=== PATIENT | male | born 1945 | race Caucasian/White ===

== ENCOUNTER 2019-05-22 22:03 | Observation (INO) | payer OTHER, MEDICARE, BC ==
[2019-05-22] MEDS ORDERED: SODIUM CHLORIDE 0.9% 1,000 ML IV STA (22:30)
[2019-05-22 22:49] LABS: Glucose,Whole Blood 96 mg/dL (75-99)
[2019-05-22 23:06] LABS: Basophils # (A) 0.1 k/uL (0-0.2); Basophils % (A) 1 %; Eosinophils # (A) 0.2 k/uL (0-0.7); Eosinophils % (A) 4 %; HCT 42.4 % (39.0-53.0); HGB 14.2 gm/dL (13.0-17.5); Lymphocytes # (A) 1.3 k/uL (1.0-4.8); Lymphocytes % (A) 21 %; MCH 33.5 pg (25.0-35.0); MCHC 33.5 g/dL (31.0-37.0); MCV 99.9 fL (80.0-100.0); Mean Platelet Volume 7.6; Monocytes # (A) 0.5 k/uL (0-1.0); Monocytes % (A) 8 %; Neutrophils % (A) 64 %; Platelet Count 275 k/uL (150-450); RBC 4.24 m/uL (4.30-5.90); RDW 13.4 % (11.5-15.5); WBC 6.3 k/uL (3.8-10.6)
[2019-05-22 23:17] LABS: Albumin 3.9 g/dL (3.5-5.0); Calcium 9.4 mg/dL (8.4-10.2); Potassium 4.1 mmol/L (3.5-5.1); Total Bilirubin 0.4 mg/dL (0.2-1.3); Total Protein 6.4 g/dL (6.3-8.2)
[2019-05-22 23:19] LABS: INR 0.9 (<1.2); Partial Thromboplastin Time 24.3 sec (22.0-30.0); Prothrombin Time 9.6 sec (9.0-12.0)
[2019-05-23 00:04] LABS: Appearance,Urine Cloudy (Clear); Bacteria,Urine Rare /hpf; Bilirubin,Urine Negative (Negative); Blood,Urine Moderate (Negative); Color,Urine Yellow; Glucose,Urine (UA) Negative (Negative); Hyaline Casts,Urine 75 /lpf (0-2); Ketones,Urine Trace (Negative); Leukocyte Esterase,Urine Small (Negative); Mucus,Urine Rare /hpf; Nitrite,Urine Negative (Negative); Protein,Urine 1+ (Negative); RBC,Urine 45 /hpf (0-5); Specific Gravity,Urine 1.014 (1.001-1.035); Squamous Epithelial Cell,Urine 2 /hpf (0-4); Urobilinogen,Urine <2.0 mg/dL (<2.0); WBC,Urine 13 /hpf (0-5)
[2019-05-23] MEDS ORDERED: ASPIRIN 81 MG PO STA (00:06)
[2019-05-23] MEDS ORDERED: SODIUM CHLORIDE 0.9% 1,000 ML IV ONE (00:07)
[2019-05-23] MEDS ORDERED: cefTRIAXone IN SWFI 1,000 MG/10 ML SYRINGE IVP STA (00:08)
--- NOTE | 2019-05-23 00:16 | ED ---
Neuro HPI - General Chief Complaint: Neuro Symptoms/Deficit Stated Complaint: rt facial numbness Time Seen by Provider: 05/22/19 22:30 Source: patient - History of Present Illness Is the patient presenting with stroke symptoms?: No Initial Comments: Chano is a 73-year-old gentleman with a history of hypertension who presents the emergency department today via private vehicle for evaluation of strokelike symptoms. Patient lives in [facility] and flew to [place] today for a [employer] constitution party, this evening he was with 2 of his good friends at the [place] he reports he drank one beer which is not atypical for him. Upon leaving the bar he reported to his friend that his face felt numb and when his friend looked at him he noticed that the left-sided Gerardo they seem to be drooping and he was drooling. Chano refused come to the emergency department immediately however his friends were able to convince him to come in to be evaluated. By the time he arrived patient reports his symptoms have resolved completely he feels absolutely fine. Patient had no other symptoms he had no difficulty with speech no weakness in his limbs no trouble walking no confusion. No headache or vision changes. Patient has no history of cardiovascular disease, TIA or stroke in the past. Review of Systems ROS Statement: Those systems with pertinent positive or pertinent negative responses have been documented in the HPI. ROS Other: All systems not noted in ROS Statement are negative. General Exam - General Exam Comments Initial Comments: GENERAL: Patient is well-developed and well-nourished. Patient is nontoxic and well-hydrated and is in no distress. HENT: Normocephalic, Atraumatic. Neck is soft and supple. No significant lymphadenopathy is noted. Oropharynx is clear. Moist mucous membranes. Neck has full range of motion without eliciting any pain. EYES: The sclera were anicteric and conjunctiva were pink and moist. Extraocular movements were intact and pupils were equal round and reactive to light. Eyelids were unremarkable. PULMONARY: Unlabored respirations. Good breath sounds bilaterally. No audible rales rh onchi or wheezing was noted. CARDIOVASCULAR: There is a regular rate and rhythm without any murmurs gallops or rubs. ABDOMEN: Soft and nontender with normal bowel sounds. SKIN: Skin is clear with no lesions or rashes and otherwise unremarkable. NEUROLOGIC: Patient is alert and oriented x3. Cranial nerves II through XII are grossly intact. Motor and sensory are also intact. Normal speech, volume and content. Symmetrical smile. MUSCULOSKELETAL: Normal extremities with adequate strength and full range of motion. No lower extremity swelling or edema. No calf tenderness. LYMPHATICS: No significant lymphadenopathy is noted PSYCHIATRIC: Normal psychiatric evaluation Stroke MDM - Lab Data Result diagrams: 05/22/19 22:45 05/22/19 22:45 Lab Results 05/22/19 05/22/19 05/22/19 Range/Units 22:39 22:45 22:45 WBC 6.3 (3.8-10.6) k/uL RBC 4.24 L (4.30-5.90) m/uL Hgb 14.2 (13.0-17.5) gm/dL Hct 42.4 (39.0-53.0) % MCV 99.9 (80.0-100.0) fL MCH 33.5 (25.0-35.0) pg MCHC 33.5 (31.0-37.0) g/dL RDW 13.4 (11.5-15.5) % Plt Count 275 (150-450) k/uL Neutrophils % 64 % Lymphocytes % 21 % Monocytes % 8 % Eosinophils % 4 % Basophils % 1 % Neutrophils # 4.0 (1.3-7.7) k/uL Lymphocytes # 1.3 (1.0-4.8) k/uL Monocytes # 0.5 (0-1.0) k/uL Eosinophils # 0.2 (0-0.7) k/uL Basophils # 0.1 (0-0.2) k/uL PT (9.0-12.0) sec INR (<1.2) APTT (22.0-30.0) sec Sodium 138 (137-145) mmol/L Potassium 4.1 (3.5-5.1) mmol/L Chloride 101 (98-107) mmol/L Carbon Dioxide 20 L (22-30) mmol/L Anion Gap 17 mmol/L BUN 37 H (9-20) mg/dL Creatinine 3.04 H (0.66-1.25) mg/dL Est GFR (CKD-EPI)AfAm 23 (>60 ml/min/1.73 sqM) Est GFR (CKD-EPI)NonAf 20 (>60 ml/min/1.73 sqM) Glucose 98 (74-99) mg/dL POC Glucose (mg/dL) 96 (75-99) mg/dL POC Glu Burrer Marker Axle ID Terrell Latham Calcium 9.4 (8.4-10.2) mg/dL Total Bilirubin 0.4 (0.2-1.3) mg/dL AST 23 (17-59) U/L ALT 20 L (21-72) U/L Alkaline Phosphatase 82 (38-126) U/L Total Protein 6.4 (6.3-8.2) g/dL Albumin 3.9 (3.5-5.0) g/dL Urine Color Urine Appearance (Clear) Urine pH (5.0-8.0) Ur Specific [place] (1.001-1.035) Urine Protein (Negative) Urine Glucose (UA) (Negative) Urine Ketones (Negative) Urine Blood (Negative) Urine Nitrite (Negative) Urine Bilirubin (Negative) Urine Urobilinogen (<2.0) mg/dL Ur Leukocyte Esterase (Negative) Urine RBC (0-5) /hpf Urine WBC (0-5) /hpf Urine WBC Clumps (None) /hpf Ur Squamous Epith Cells (0-4) /hpf Urine Bacteria (None) /hpf Hyaline Casts (0-2) /lpf Urine Mucus (None) /hpf 05/22/19 05/22/19 Range/Units 22:45 23:35 WBC (3.8-10.6) k/uL RBC (4.30-5.90) m/uL Hgb (13.0-17.5) gm/dL Hct (39.0-53.0) % MCV (80.0-100.0) fL MCH (25.0-35.0) pg MCHC (31.0-37.0) g/dL RDW (11.5-15.5) % Plt Count (150-450) k/uL Neutrophils % % Lymphocytes % % Monocytes % % Eosinophils % % Basophils % % Neutrophils # (1.3-7.7) k/uL Lymphocytes # (1.0-4.8) k/uL Monocytes # (0-1.0) k/uL Eosinophils # (0-0.7) k/uL Basophils # (0-0.2) k/uL PT 9.6 (9.0-12.0) sec INR 0.9 (<1.2) APTT 24.3 (22.0-30.0) sec Sodium (137-145) mmol/L Potassium (3.5-5.1) mmol/L Chloride (98-107) mmol/L Carbon Dioxide (22-30) mmol/L Anion Gap mmol/L BUN (9-20) mg/dL Creatinine (0.66-1.25) mg/dL Est GFR (CKD-EPI)AfAm (>60 ml/min/1.73 sqM) Est GFR (CKD-EPI)NonAf (>60 ml/min/1.73 sqM) Glucose (74-99) mg/dL POC Glucose (mg/dL) (75-99) mg/dL POC Glu Burrer Marker Axle ID Calcium (8.4-10.2) mg/dL Total Bilirubin (0.2-1.3) mg/dL AST (17-59) U/L ALT (21-72) U/L Alkaline Phosphatase (38-126) U/L Total Protein (6.3-8.2) g/dL Albumin (3.5-5.0) g/dL Urine Color Yellow Urine Appearance Cloudy (Clear) Urine pH 5.0 (5.0-8.0) Ur Specific [place] 1.014 (1.001-1.035) Urine Protein 1+ H (Negative) Urine Glucose (UA) Negative (Negative) Urine Ketones Trace H (Negative) Urine Blood Moderate H (Negative) Urine Nitrite Negative (Negative) Urine Bilirubin Negative (Negative) Urine Urobilinogen <2.0 (<2.0) mg/dL Ur Leukocyte Esterase Small H (Negative) Urine RBC 45 H (0-5) /hpf Urine WBC 13 H (0-5) /hpf Urine WBC Clumps Rare H (None) /hpf Ur Squamous Epith Cells 2 (0-4) /hpf Urine Bacteria Rare H (None) /hpf Hyaline Casts 75 H (0-2) /lpf Urine Mucus Rare H (None) /hpf - NIH Stroke Scale 1a. Level of Consciousness: (0) alert 1b. LOC Questions: (0) answers correctly 1c. LOC Commands: (0) performs tasks correctly 2. Best Gaze: (0) normal 3. Visual: (0) no visual loss 4. Facial Palsy: (0) normal symmetrical movement 5a. Motor Arm Left: (0) no drift 5b. Motor Arm Right: (0) no drift 6a. Motor Leg Left: (0) no drift 6b. Motor Leg Right: (0) no drift 7. Limb Ataxia: (0) absent 8. Sensory: (0) normal 9. Best Language: (0) no aphasia 10. Dysarthria: (0) normal 11. Extinction/Inattention: (0) no abnormality - Thrombolytic Inclusion/Exclusion Thrombolytic Contraindications: Rapidly Improving s/s - Medical Decision Making The patient was seen and evaluated, history is obtained from patient and her friends at bedside This a previously healthy 73-year-old gentleman with history of hypertension who presents with TIA like symptoms. Patient had an episode of left face numbness, drooping and drooling. The symptoms resolved after approximately 15-30 minutes. Symptoms are gone upon arrival to the emergency department. Patient had had one beer prior to onset of symptoms but this is not atypical for him. Stroke workup was initiated Labs reveal creatinine of >3 Urinalysis concerning for urinary tract infection, culture will be obtained Patient remains asymptomatic throughout his stay in the emergency department however given that he had an apparent TIA would recommend he remain in the hospital for further evaluation. Patient is agreeable to this. - EKG Data -: EKG Interpreted by Mt EKG shows normal: sinus rhythm Rate: normal EKG was obtained at 2244, rate is 84 rhythm is sinus there is a normal axis there are normal intervals, NJ 136, QRS 80, QTC is 432 there are no acute ST elevations or depressions there is no evidence of acute ischemia, infarction or arrhythmia. 05/23/19 00:17 Past Medical History Past Medical History: Hypertension Additional Past Surgical History / Comment(s): denies Smoking Status: Never smoker Past Alcohol Use History: Occasional Past Drug Use History: None Reported Course Vital Signs 05/22/19 22:09 Temperature 98.2 F Pulse Rate 87 Respiratory 17 Rate Blood Pressure 115/67 O2 Sat by Pulse 95 Oximetry Disposition Clinical Impression: Transient cerebral ischemia, UTI (urinary tract infection), Dehydration Disposition: HOME SELF-CARE Condition: Stable Is patient prescribed a controlled substance at d/c from ED?: No Referrals: None,Stated [Primary Care Provider] - 1-2 days
--- NOTE | 2019-05-23 00:17 | CT ---
EXAM: CT Head Without Intravenous Contrast CLINICAL HISTORY: ITS.REASON CT Reason: Neuro Deficits - left facial numbness - resolved TECHNIQUE: Axial computed tomography images of the head/brain without intravenous contrast. CTDI is 49.10 mGy and DLP is 1131.40 mGy-cm. This CT exam was performed using one or more of the following dose reduction techniques: automated exposure control, adjustment of the mA and/or kV according to patient size, and/or use of iterative reconstruction technique. COMPARISON: No relevant prior studies available. 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 Chronic ischemic small vessel white matter disease. Diffuse parenchymal atrophy. No midline shift or hydrocephalus. No hemorrhage. Ventricles: See above. Bones/joints: Unremarkable. No acute fracture. Soft tissues: Unremarkable. Vasculature: Dense carotid siphon athero-sclerotic calcifications. Sinuses: Mild scattered paranasal sinus mucosal thickening. Mastoid air cells: Unremarkable as visualized. No mastoid effusion. IMPRESSION: No acute intracranial pathology.
--- NOTE | 2019-05-23 00:37 | XR ---
EXAM: XR Chest, 2 Views CLINICAL HISTORY: ITS.REASON XR Reason: altered mental status TECHNIQUE: Frontal and lateral views of the chest. COMPARISON: No relevant prior studies available. FINDINGS: Lungs: Calcified granulomas at the left upper lobe. No hilar or mediastinal enlargement. No cardiac silhouette enlargement. Pleural space: No pleural effusion. No pneumothorax. Heart: See above. Mediastinum: See above. Bones/joints: Degenerative spine changes Upper abdomen: Elevation of the right hemidiaphragm. IMPRESSION: No acute cardiopulmonary disease.
[2019-05-23 02:21] VITALS: BMI 27.7
[2019-05-23] MEDS: SODIUM CHLORIDE 0.9% 1,000 ML IV SCH ×2 (04:58→12:57)
[2019-05-23 05:33] VITALS: RESP 16
--- NOTE | 2019-05-23 08:30 | US ---
EXAMINATION TYPE: US carotid duplex BILAT DATE OF EXAM: 05/23/2019 COMPARISON: NONE CLINICAL HISTORY: TIA - left facial weakness. EXAM MEASUREMENTS: RIGHT: Peak Systolic Velocity (PSV) cm/sec ----- Right CCA: 47.7 ----- Right ICA: 66.0 ----- Right ECA: 114.4 ICA/CCA ratio: 1.4 RIGHT: End Diastole cm/sec ----- Right CCA: 6.9 ----- Right ICA: 22.8 ----- Right ECA: 5.5 LEFT: Peak Systolic Velocity (PSV) cm/sec ----- Left CCA: 96.1 ----- Left ICA: 71.5 ----- Left ECA: 74.4 ICA/CCA ratio: 0.7 LEFT: End Diastole cm/sec ----- Left CCA: 11.4 ----- Left ICA: 11.2 ----- Left ECA: 5.5 VERTEBRALS (direction of flow): Right Vertebral: Antegrade Left Vertebral: Antegrade Rhythm: Normal Patient has a low jawline, and tortuous vessels, technically difficult study. Moderate plaque, right ICA very difficult to assess due to tortuosity. Left CCA shows no elevated velocity but moderate to severe plaque. CTA may better assess tortuous vessels. IMPRESSION: Although no hemodynamically significant stenosis is seen on this examination there is tortuosity of t he vasculature limiting evaluation. Moderate to severe grayscale plaquing is seen on the left and mod erate on the right. Therefore CTA neck could better assess for stenosis given the previously mentione d tortuosity and grayscale plaquing. Criteria for Assigning % of Stenosis / Diameter reduction (Estimation based on the indirect measurements of the internal carotid artery velocities (ICA PSV). 1. Normal (no stenosis)=ICA PSV < 125 cm/s: ratio < 2.0: ICA EDV<40 cm/s. 2. Less than 50% stenosis=ICA PSV < 125 cm/s: ratio < 2.0: ICA EDV<40 cm/s. 3. 50 to 69% stenosis=ICA PSV of 125 to 230 cm/s: ration 2.0 ? 4.0: ICA EDV 40-100 cm/s. 4. Greater than 70% stenosis to near occlusion= ICA PSV > 230 cm/s: ratio > 4.0: ICA EDV > 100 cm/s. 5. Near occlusion= ICA PSV velocities may be low or undetectable: variable ratio and ICA EDV. 6. Total occlusion=unable to detect flow.
--- NOTE | 2019-05-23 09:51 | ECHOF ---
Referral Reason:TIA MEASUREMENTS -------- HEIGHT: 175.3 cm WEIGHT: 84.8 kg BP: 144/68 RVIDd: 3.9 cm (< 3.3) IVSd: 1.5 cm (0.6 - 1.1) LVIDd: 4.3 cm (3.9 - 5.3) LVPWd: 1.4 cm (0.6 - 1.1) IVSs: 2.0 cm LVIDs: 2.3 cm LVPWs: 2.1 cm LAESV Index (A-L): 25.45 ml/m Ao Diam: 3.6 cm (2.0 - 3.7) AV Cusp: 2.0 cm (1.5 - 2.6) LA Diam: 4.4 cm (2.7 - 3.8) MV EXCURSION: 13.644 mm (> 18.000) MV EF SLOPE: 76 mm/s (70 - 150) EPSS: 0.9 cm MV E Ghanshyam: 0.69 m/s MV DecT: 217 ms MV A Ghanshyam: 1.07 m/s MV E/A Ratio: 0.64 RAP: 5.00 mmHg RVSP: 18.36 mmHg FINDINGS -------- Sinus rhythm. This was a technically difficult study with suboptimal parasternal views. The left ventricular size is normal. There is moderate concentric left ventricular hypertrophy. O verall left ventricular systolic function is normal with, an EF between 60 - 65 %. The right ventricle is mild to moderately enlarged. Normal LA size by volume 22+/-6 ml/m2. The right atrial size is normal. 5.0mg of Lumason was utilized for enhancement of images Interatrial and interventricular septum intact. The aortic valve was not well visualized. There is no evidence of aortic regurgitation. There is no evidence of aortic stenosis. The mitral valve leaflets are mildly thickened. Mild mitral annular calcification present. No osvaldo ral regurgitation. Trace tricuspid regurgitation present. There is no evidence of pulmonary hypertension. The right ventricular systolic pressure, as measured by Doppler, is 18.36mmHg. There is no pulmonic regurgitation present. The aortic root size is normal. IVC Not well visulized. There is no pericardial effusion. CONCLUSIONS -------- 1. Sinus rhythm. 2. This was a technically difficult study with suboptimal parasternal views. 3. The left ventricular size is normal. 4. There is moderate concentric left ventricular hypertrophy. 5. Overall left ventricular systolic function is normal with, an EF between 60 - 65 %. 6. The right ventricle is mild to moderately enlarged. 7. Normal LA size by volume 22+/-6 ml/m2. 8. The right atrial size is normal. 9. 5.0mg of Lumason was utilized for enhancement of images 10. Interatrial and interventricular septum intact. 11. The aortic valve was not well visualized. 12. There is no evidence of aortic regurgitation. 13. There is no evidence of aortic stenosis. 14. The mitral valve leaflets are mildly thickened. 15. Mild mitral annular calcification present. 16. No mitral regurgitation. 17. Trace tricuspid regurgitation present. 18. There is no evidence of pulmonary hypertension. 19. The right ventricular systolic pressure, as measured by Doppler, is 18.36mmHg. 20. There is no pulmonic regurgitation present. 21. The aortic root size is normal. 22. IVC Not well visulized. 23. There is no pericardial effusion. LABORER/GRADE CHECK: Sahara Soares RDCS
[2019-05-23 11:08] VITALS: TEMP 98.1
[2019-05-23 12:15] VITALS: PULSE 86
--- NOTE | 2019-05-23 13:49 | P.CNNES ---
History of Present Illness Consult date: 05/23/19 Requesting physician: Chiqui Lorenz Reason for Consult: TIA Chief complaint: Transient left FD/slurred speech History of Present Illness: This is a 73 RH male whose vascular risk factors include advancing age and HTN. He was admitted yesterday after his friend noticed his left face was drooping and he was having slurred speech. The whole episode lasted around 5 minutes. Patient states that he was not even aware that his speech was slurred, but to his friend it was. Denies other neuro c/o such as other focal numbness/weakness, changes in vision, diplopia, amaurosis, vertigo, dysphagia, aphasia, tremors, bowel/bladder incontinence or ataxia. No recent head/neck trauma. Visiting from [place]. Was attending a long-term green party when his neuro sx occurred. No recurrence of his facial symptoms or other new neuro sx. Anxious to be discharged. Review of Systems I have performed a 14-point organ ROS with patient that are negative except as per HPI. Past Medical History Past Medical History: Hypertension History of Any Multi-Drug Resistant Organisms: None Reported Additional Past Surgical History / Comment(s): denies Past Anesthesia/Blood Transfusion Reactions: Unable to Obtain Smoking Status: Former smoker Past Alcohol Use History: Occasional Additional Past Alcohol Use History / Comment(s): quit 5 years ago Past Drug Use History: None Reported Medications and Allergies Home Medications Medication Instructions Recorded Confirmed Type Atorvastatin [Lipitor] 40 mg PO HS 05/23/19 05/23/19 History Carvedilol [Coreg] 3.125 mg PO BID 05/23/19 05/23/19 History Cholecalciferol [Vitamin D3 (25 2,000 unit PO DAILY 05/23/19 05/23/19 History Mcg = 1000 Iu)] Ergocalciferol (Vitamin D2) 50,000 unit PO DAILY 05/23/19 05/23/19 History [Vitamin D2] Losartan [Cozaar] 50 mg PO DAILY 05/23/19 05/23/19 History Allergies Allergy/AdvReac Type Severity Reaction Status Date / Time No Known Allergies Allergy Verified 05/23/19 00:50 Physical Examination - Vital Signs Vital Signs: Vital Signs Temp Pulse Pulse Resp BP BP Pulse Ox 05/23/19 11:53 86 16 153/85 96 05/23/19 07:53 98.1 F 80 16 134/71 96 05/23/19 04:00 98.0 F 91 16 144/68 95 05/23/19 02:15 98.5 F 97 18 134/67 95 05/23/19 02:07 91 16 119/65 98 05/23/19 01:40 98.5 F 97 18 134/67 95 05/22/19 22:09 98.2 F 87 17 115/67 95 Intake and Output 05/22/19 05/23/19 05/23/19 22:59 06:59 14:59 Intake Total 240 Balance 240 Intake: Oral 240 Other: Voiding Method Toilet Toilet # Voids 1 Weight 83.37 kg 85.2 kg Gen NAD Pleasant and cooperative HEENT NCAT Sclera without icterus O/P clear Neck Supple No carotid bruit Cor RRR no m/r/g Lungs CTAB Abd Soft NTND +BS Ext Warm to touch No edema Neuro MS A+Ox4 Normal fluency Able to follow all commands CN PERRL VFF no APD EOMI no nystagmus or UZAIR No facial asymmetry Masseter's symmetric Hearing intact to normal voice bilaterally Speech not dysarthric Equal elevation of palate Tongue midline Sym shrug and SCM bilaterally Motor Normal bulk/tone No pronator or leg drift No tremors Strength 5/5 sym throughout Sens Intact to LT x4 No neglect or extinction Coord No dysmetria on FTN bilaterally DTRs 2+/4 sym throughout Toes downgoing bilaterally No clonus at achilles Gait Deferred NIHSS 0 Results - Laboratory Findings CBC and BMP: 05/22/19 22:45 05/22/19 22:45 Abnormal Lab Findings: Abnormal Labs 05/22/19 05/22/19 05/22/19 22:45 22:45 23:35 RBC 4.24 L Carbon Dioxide 20 L BUN 37 H Creatinine 3.04 H ALT 20 L Urine Protein 1+ H Urine Ketones Trace H Urine Blood Moderate H Ur Leukocyte Esterase Small H Urine RBC 45 H Urine WBC 13 H Urine WBC Clumps Rare H Urine Bacteria Rare H Hyaline Casts 75 H Urine Mucus Rare H - Diagnostic Findings Additional findings: CT Head wo cont 05/22/19. Nil acute. Carotid duplex 05/23/19. Difficult exam due to tortuosity of carotid artieres. CTA recommended. TTE 05/23/19. Normal LV size. Moderate concentric LVH. EF 60-65%. Normal LA size. No intracardiac thrombi. I have reviewed all neuroimages myself. Assessment and Plan Assessment: Transient left FD and dysarthria, possible TIA. HTN Plan: -ASA 325mg po qd -Statin therapy -OK to treat BP to normotensive range as his NIHSS is 0 -CTA Head/Neck -TTE reviewed -PT/OT/SP per protocol -DVT prophylaxis: SCDs -May potentially be discharged after CTA -d/w patient in detail. All questions answered. Thank you for this consultation. Please call with ?.
--- NOTE | 2019-05-23 14:49 | P.PN ---
Progress Note - Text Progress Note Date: 05/23/19 CTA cannot be done due to poor renal function. Alternative would be MRA Neck wo bertha, but patient does not wish to stay in-house. Will discharge him on aspirin 325mg po qd and have him follow up with his PCP as soon as he returns home, and if he were to have recrudescence of his neuro symptoms and/or other new neuro concerns, then he should seek immediate medical attention. d/w direct support staff.
[2019-05-23 14:56] LABS: Albumin 3.4 g/dL (3.5-5.0); Total Bilirubin 0.4 mg/dL (0.2-1.3); Total Protein 5.9 g/dL (6.3-8.2)
[2019-05-23 16:03] VITALS: BP 161/90
[2019-05-23] MEDS ORDERED: ATORVASTATIN 80 MG TAB PO SCH (21:00)
[2019-05-24] MEDS ORDERED: ASPIRIN 325 MG TAB PO SCH (00:19)
--- NOTE | 2019-05-27 02:34 | P.HPIM ---
History of Present Illness H&P Date: 05/23/19 Chief Complaint: Left facial droop Patient is a 73-year-old male with a known history of hypertension who was was only from [place] currently visiting, was brought to the hospital due to left facial drooping and slurred speech. Patient was noticed by his friend that his left face is drooping. The episode was last about 5 minutes. Otherwise denied any weakness. No focal weakness. No numbness or tingling. No diplopia or change in vision. No bowel or bladder incontinence. No loss of consciousness. No witnesses seizures. Patient was attending a [employer] with his neuro symptoms occurred. Currently patient does not have any symptoms. No compressive chest pain or shortness of breath. No palpitations. No nausea vomiting. No headache or dizziness or lightheadedness. CT head negative Carotid duplex showed tortuosity of the vasculature. Chest x-ray showed no acute process EKG showed normal sinus rhythm. Next and 2-D echo cardiac exam showed normal ejection fraction. No shunt. No valvular abnormalities noted. Review of Systems Constitutional: Patient denies any fever or chills . No generalized weakness or weight loss. Abdomen: Patient denied nausea vomiting and diarrhea and abdominal pain. Cardiovascular: Patient denies any chest pain or short of breath no palpitations. Respiratory: patient denied any cough is from production. No shortness of breath Neurologic: Patient denied any numbness or tingling headache. Musculoskeletal: Patient denies any complaints of joint swelling or deformity. Skin: Negative Psychiatric: Negative Endocrine: No heat or cold intolerance. No recent weight gain. Genitourinary: No dysuria or hematuria. All other 14 point ROS negative except the above Past Medical History Past Medical History: Hypertension History of Any Multi-Drug Resistant Organisms: None Reported Additional Past Surgical History / Comment(s): denies Past Anesthesia/Blood Transfusion Reactions: Unable to Obtain Smoking Status: Former smoker Past Alcohol Use History: Occasional Additional Past Alcohol Use History / Comment(s): quit 5 years ago Past Drug Use History: None Reported Medications and Allergies Home Medications Medication Instructions Recorded Confirmed Type Aspirin 325 mg PO DAILY #30 tab 05/23/19 Rx Atorvastatin [Lipitor] 40 mg PO HS 05/23/19 05/23/19 History Carvedilol [Coreg] 3.125 mg PO BID 05/23/19 05/23/19 History Cholecalciferol [Vitamin D3 (25 2,000 unit PO DAILY 05/23/19 05/23/19 History Mcg = 1000 Iu)] Ergocalciferol (Vitamin D2) 50,000 unit PO DAILY 05/23/19 05/23/19 History [Vitamin D2] Allergies Allergy/AdvReac Type Severity Reaction Status Date / Time No Known Allergies Allergy Verified 05/23/19 00:50 Physical Exam Vitals: Vital Signs Temp Pulse Pulse Resp BP BP Pulse Ox 05/23/19 11:53 86 16 153/85 96 05/23/19 07:53 98.1 F 80 16 134/71 96 05/23/19 04:00 98.0 F 91 16 144/68 95 05/23/19 02:15 98.5 F 97 18 134/67 95 05/23/19 02:07 91 16 119/65 98 05/23/19 01:40 98.5 F 97 18 134/67 95 05/22/19 22:09 98.2 F 87 17 115/67 95 Intake and Output 05/22/19 05/23/19 05/23/19 22:59 06:59 14:59 Intake Total 240 Balance 240 Intake: Oral 240 Other: Voiding Method Toilet Toilet # Voids 1 Weight 83.37 kg 85.2 kg PHYSICAL EXAMINATION: Patient is lying in the bed comfortably, no acute distress, awake alert and oriented.. HEENT: Normocephalic. Neck is supple. Pupils reactive. Nostrils clear. Oral cavity is moist. Ears reveal no drainage. Neck reveals no JVD, carotid bruits, or thyromegaly. CHEST EXAMINATION: Trachea is central. Symmetrical expansion. Lung moore clear to auscultation and percussion. CARDIAC: Normal S1, S2 with no gallops. No murmurs ABDOMEN: Soft. Bowel sounds normal. No organomegaly. No abdominal bruits. Extremities: reveal no edema. No clubbing or cyanosis Neurologically awake, alert, oriented x3 with well-coordinated movements. No focal deficits noted Skin: No rash or skin lesions. Psychiatric: Coperative. Nonsuicidal Musculoskeletal: No joint swelling or deformity. Normal range of motion. Results CBC & Chem 7: 05/22/19 22:45 05/23/19 14:01 Labs: Abnormal Lab Results - Last 24 Hours (Table) 0605/22/19 05/22/19 Range/Units 22:45 22:45 23:35 RBC 4.24 L (4.30-5.90) m/uL Carbon Dioxide 20 L (22-30) mmol/L BUN 37 H (9-20) mg/dL Creatinine 3.04 H (0.66-1.25) mg/dL ALT 20 L (21-72) U/L Urine Protein 1+ H (Negative) Urine Ketones Trace H (Negative) Urine Blood Moderate H (Negative) Ur Leukocyte Esterase Small H (Negative) Urine RBC 45 H (0-5) /hpf Urine WBC 13 H (0-5) /hpf Urine WBC Clumps Rare H (None) /hpf Urine Bacteria Rare H (None) /hpf Hyaline Casts 75 H (0-2) /lpf Urine Mucus Rare H (None) /hpf Thrombosis Risk Factor Assmnt - DVT/VTE Prophylaxis DVT/VTE Prophylaxis: Pharmacologic Prophylaxis ordered - Choose All That Apply Any of the Below Risk Factors Present?: Yes Each Factor Represents 1 point: Obesity (BMI >25) Other Risk Factors: Yes Each Risk Factor Represents 2 Points: Age 61-74 years Other congenital or acquired thrombophilia - If yes, enter type in comment: No Thrombosis Risk Factor Assessment Total Risk Factor Score: 3 Thrombosis Risk Factor Assessment Level: Moderate Risk Assessment and Plan Assessment: Transient facial droop left-sided with slurred speech resolved now. Possible TIA. Acute kidney injury creatinine 3.04. Baseline not known. Likely prerenal. Hypertension DVT prophylaxis Plan: Patient will be continued on IV hydration. Stroke workup was ordered. Continue with DVT and GI prophylaxis. PT OT and speech therapy was consulted.. Neurology is on board. Further recommendations based on the clinical course. Time with Patient: Greater than 30
--- NOTE | 2019-05-27 02:37 | P.DS ---
Providers Date of admission: 05/23/19 00:18 Expected date of discharge: 05/23/19 Attending physician: Dianna Steele Consults: 05/23/19 00:18 Consult Physician Urgent Consulting Provider: George Michele Consult Reason/Comments: TIA Do you want consulting provider notified?: Yes, Notify in am Primary care physician: Stated None Hospital Course: Discharge diagnosis Transient facial droop left-sided with slurred speech resolved now. Possible TIA. Acute kidney injury creatinine 3.04. Baseline not known. Likely prerenal. Creatinine level improved to 1.66 Hypertension DVT prophylaxis Hospital course Patient is a 73-year-old male with a known history of hypertension who was was only from [place] currently visiting, was brought to the hospital due to left facial drooping and slurred speech. Patient was noticed by his friend that his left face is drooping. The episode was last about 5 minutes. Otherwise denied any weakness. No focal weakness. No numbness or tingling. No diplopia or change in vision. No bowel or bladder incontinence. No loss of consciousness. No witnesses seizures. Patient was attending a [employer] [facility] [employer] [facility] with his neuro symptoms occurred. Currently patient does not have any symptoms. No compressive chest pain or shortness of breath. No palpitations. No nausea vomiting. No headache or dizziness or lightheadedness. CT head negative Carotid duplex showed tortuosity of the vasculature. Chest x-ray showed no acute process EKG showed normal sinus rhythm. Next and 2-D echo cardiac exam showed normal ejection fraction. No shunt. No valvular abnormalities noted. Patient was continued on IV hydration. Stroke workup was ordered. Negative as above. Due to tortuosity of the carotid vasculature CT angiogram versus MRA was recommended but could not be done at this time due to acute kidney injury. Patient was recommended to continue aspirin 35 mg daily. Follow up with his PCP and sick medical intervention if the symptoms recur. Patient able to tolerate oral diet and no complaints of dysarthria and slurred speech. Patient wants to be discharged home. Discussed with neurology. PHYSICAL EXAMINATION: Patient is lying in the bed comfortably, no acute distress, awake alert and oriented.. HEENT: Normocephalic. Neck is supple. Pupils reactive. Nostrils clear. Oral cavity is moist. Ears reveal no drainage. Neck reveals no JVD, carotid bruits, or thyromegaly. CHEST EXAMINATION: Trachea is central. Symmetrical expansion. Lung moore clear to auscultation and percussion. CARDIAC: Normal S1, S2 with no gallops. No murmurs ABDOMEN: Soft. Bowel sounds normal. No organomegaly. No abdominal bruits. Extremities: reveal no edema. No clubbing or cyanosis Neurologically awake, alert, oriented x3 with well-coordinated movements. No focal deficits noted Skin: No rash or skin lesions. Psychiatric: Coperative. Nonsuicidal Musculoskeletal: No joint swelling or deformity. Normal range of motion. Discharge vitals reviewed. Patient Condition at Discharge: Stable Plan - Discharge Summary Discharge Rx Participant: No New Discharge Prescriptions: New Aspirin 325 mg PO DAILY #30 tab Continue Carvedilol [Coreg] 3.125 mg PO BID Cholecalciferol [Vitamin D3 (25 Mcg = 1000 Iu)] 2,000 unit PO DAILY Atorvastatin [Lipitor] 40 mg PO HS Ergocalciferol (Vitamin D2) [Vitamin D2] 50,000 unit PO DAILY Discontinued Losartan [Cozaar] 50 mg PO DAILY Discharge Medication List Aspirin 325 mg PO DAILY #30 tab 05/23/19 [Rx] Atorvastatin [Lipitor] 40 mg PO HS 05/23/19 [History] Carvedilol [Coreg] 3.125 mg PO BID 05/23/19 [History] Cholecalciferol [Vitamin D3 (25 Mcg = 1000 Iu)] 2,000 unit PO DAILY 05/23/19 [History] Ergocalciferol (Vitamin D2) [Vitamin D2] 50,000 unit PO DAILY 05/23/19 [History] Follow up Appointment(s)/Referral(s): None,Stated [Primary Care Provider] - 1-2 days (Please schedule appointment with your primary care) Patient Instructions/Handouts: Transient Ischemic Attack (DC) Discharge Disposition: HOME SELF-CARE
== END 2019-05-23 16:40 | disposition home or self-care (01) ==
LOC: EC 22:03 → 3SCARD 05-23 00:18
PROVIDERS: ADMIT Hospitalist; ATTEND Hospitalist
DX: R29.810 Facial weakness (principal); N17.9 Acute kidney failure, unspecified; E86.0 Dehydration; R47.81 Slurred speech; I10 Essential (primary) hypertension; K11.7 Disturbances of salivary secretion; N39.0 Urinary tract infection, site not specified; R20.0 Anesthesia of skin; R47.1 Dysarthria and anarthria; E66.9 Obesity, unspecified; Z68.27 Body mass index [BMI] 27.0-27.9, adult; Z79.899 Other long term (current) drug therapy; Z87.891 Personal history of nicotine dependence
CPT/HCPCS: 96361 ×3; 96374; 99285; 36415; 93005; 93306; 92523; 80053 ×2; 85025; 85610; 85730; 81001; 71046; 93880; 70450; G0378; J0696; Q9950